=== PATIENT | male | born 1950 | race Caucasian/White ===

== ENCOUNTER 2020-12-08 15:22 | Emergency (ER) | payer MEDICARE, OTHER ==
[~2020-12-08] VITALS: Ht 154.9 cm; Wt 81.7 kg
[2020-12-08] MEDS ORDERED: LISINOPRIL20 MG PO (19:16)
[2020-12-08] MEDS ORDERED: HYDROCHLOROTHIA25 MG PO (19:16)
[2020-12-08] MEDS ORDERED: GABAPENTIN300 MG (19:17)
[2020-12-08] MEDS ORDERED: TRADJENTA5 MG PO (19:17)
[2020-12-08] MEDS ORDERED: ELIQUIS5 MG PO (19:17)
[2020-12-08] MEDS ORDERED: TORSEMIDE10 MG (19:17)
[2020-12-08] MEDS ORDERED: LANTUS SOL100 UNIT/1 SUB-Q (19:17)
[2020-12-08] MEDS ORDERED: ATORVASTATIN CA80 MG (19:18)
[2020-12-08] MEDS ORDERED: CIPROFLOXACIN500 MG (19:18)
[2020-12-08] MEDS ORDERED: CARVEDILOL12.5 MG (19:19)
[2020-12-08] MEDS ORDERED: TAMSULOSIN HCL0.4 MG (19:19)
[2020-12-08] MEDS ORDERED: METFORMIN HCL500 MG (19:19)
[2020-12-08] MEDS ORDERED: FENOFIBRATE134 MG (19:19)
[2020-12-08] MEDS ORDERED: TRAMADOL HCL50 MG PO (19:20)
[2020-12-08] MEDS ORDERED: SANTYL30 GM TP (19:20)
--- NOTE | 2020-12-08 21:47 | EKG ---
[facility] [address] [facility] [place] [address] Signed Wide QRS rhythm Left axis deviation Nonspecific intraventricular block Inferior infarct , age undetermined Abnormal ECG No previous ECGs available Confirmed by LEW ERVIN MD ([id number]) on 12/08/2020 9:46:47 PM Electronically Signed By: LEW ERVIN MD 12/08/20 2147 PATIENT NAME: ELIZABETH RAYMOND Electrocardiogram DATE OF : 48 PHYSICIAN: LEW ERVIN MD REPORT #: [id number] REPORT IS CONFIDENTIAL AND NOT TO BE RELEASED WITHOUT AUTHORIZATION
--- NOTE | 2020-12-15 07:50 | NUR ---
Received call from pts daughter, requesting if pt had a covid test while at [place]. Informed pt did have a covid test and it was negative.
== END 2020-12-09 02:34 | disposition home or self-care (01) ==
LOC: ED 15:22
DX: K59.00 Constipation, unspecified (principal); I21.4 Non-ST elevation (NSTEMI) myocardial infarction; Z20.822 Contact with and (suspected) exposure to COVID-19; E11.9 Type 2 diabetes mellitus without complications; F03.90 Unspecified dementia, unspecified severity, without behavioral disturbance, psychotic disturbance, mood disturbance, and anxiety; E78.5 Hyperlipidemia, unspecified; I10 Essential (primary) hypertension; Z79.899 Other long term (current) drug therapy; Z79.4 Long term (current) use of insulin; Z79.891 Long term (current) use of opiate analgesic
CPT/HCPCS: 51701; 51798; 74018; 80053; 81001; 83605; 83690; 84484; 85025; 85610; 85730; 93005; 93010; 99285-25; C9803; J1170; J1644; J2270; J7030; U0003